=== PATIENT | female | born 1990 | race Caucasian/White ===

== ENCOUNTER 2019-06-20 08:15 | Day surgery (SDC) | payer OTHER ==
[~2019-06-20] VITALS: Ht 165.1 cm; Wt 51.2 kg
[2019-06-20 08:59] VITALS: Ht 165.1 cm; Wt 51.2 kg
[2019-06-20 09:24] VITALS: BP 122/78; PULSE 100; RESP 18
[2019-06-20] MEDS ORDERED: MIDAZOLAM 1 MG/ML 2 ML INJ ONE ×3 (10:54)
[2019-06-20] MEDS ORDERED: FENTAnyl 50 MCG/ML VIAL ONE (10:55)
[2019-06-20 11:17] VITALS: BP 99/62; RESP 20
== END 2019-06-20 11:00 | disposition home or self-care (01) ==
LOC: GIL 08:15
PROVIDERS: ATTEND Internal Medicine Gastroenterology
DX: R19.4 Change in bowel habit (principal); K64.8 Other hemorrhoids; K44.9 Diaphragmatic hernia without obstruction or gangrene; K21.9 Gastro-esophageal reflux disease without esophagitis
CPT/HCPCS: 84703; 88305; 88312; J2250; J3010